=== PATIENT | female | born 1995 | race Caucasian/White ===

== ENCOUNTER 2017-09-11 06:12 | Inpatient (IN) | payer BC, OTHER ==
--- NOTE | 2017-09-11 08:50 | PR ---
[facility] [address] [facility] [place], [place] [address] Signed Progress Notes IP Datetime Report Generated by CPN: 09/11/2017 08:50 PROGRESS NOTES: [id number] Other Impressions: Induction Procedures: Artificial ROM Plan: Continue present management; Anticipate Vaginal Delivery VITAL SIGNS: [id number] Vital Signs: Reviewed; Within Normal Limits EXAM: [id number] Dilatation: 4.0 Effacement: 50 Station: -3 Uterine Contractions: occasonal MEMBRANES: [id number] Membrane Status: Ruptured Amniotic Fluid Color: Clear ROM Note: AROM without difficulty Comments: Discussed Induction with AROM. Fetus A: [id number] FHR Baseline: 120 Variability: Moderate 6-25bpm Accelerations: 15X15 Presentation: Vertex Fetus B: [id number] Signing Physician: Lg Najera MD CC: *Electronically Signed* 09/11/17 0850 LG NAJERA MD PATIENT NAME: HAL VILLA PROGRESS NOTE DATE OF : [birth year] PHYSICIAN: LG NAJERA MD RPT #: [id number] REPORT IS CONFIDENTIAL AND NOT TO BE RELEASED WITHOUT AUTHORIZATION
--- NOTE | 2017-09-11 12:51 | PR ---
[facility] [address] [facility] [place], [place] [address] Signed Progress Notes IP Datetime Report Generated by CPN: 09/11/2017 12:51 PROGRESS NOTES: [id number] Impression: Normal progression of labor Other Impressions: Induction Procedures: Artificial ROM Plan: Continue present management; Anticipate Vaginal Delivery Informed Consent Obtain: Vaginal Delivery VITAL SIGNS: [id number] Vital Signs: Reviewed; Within Normal Limits EXAM: [id number] Dilatation: 5.0 Effacement: 75 Station: -2 Uterine Contractions: every 2-3 minutes MEMBRANES: [id number] Membrane Status: Ruptured Amniotic Fluid Color: Clear ROM Note: AROM without difficulty Comments: Getting uncomfortable, would like Epidural Fetus A: [id number] FHR Baseline: 120 Variability: Moderate 6-25bpm Accelerations: 15X15 Decelerations: None Presentation: Vertex Fetus B: [id number] Signing Physician: Eulalio Najera MD CC: *Electronically Signed* 09/11/17 1251 EULALIO NAJERA MD PATIENT NAME: ALLENHALASHLEY JOHNSON PROGRESS NOTE DATE OF : [birth year] PHYSICIAN: EULALIO NAJERA MD RPT #: [id number] REPORT IS CONFIDENTIAL AND NOT TO BE RELEASED WITHOUT AUTHORIZATION
--- NOTE | 2017-09-11 15:34 | PR ---
[facility] [address] [place], [place] [address] Signed Progress Notes IP Datetime Report Generated by CPN: 09/11/2017 15:33 PROGRESS NOTES: [id number] Impression: Slow Progression of Labor Other Impressions: Induction Procedures: Intrauterine Pressure Catheter; Scalp Electrode Plan: Continue present management; Anticipate Vaginal Delivery Informed Consent Obtain: Vaginal Delivery VITAL SIGNS: [id number] Vital Signs: Reviewed; Within Normal Limits EXAM: [id number] Dilatation: 6.0 Effacement: 80 Station: -2 Uterine Contractions: every 2-3 minutes MEMBRANES: [id number] Membrane Status: Ruptured Amniotic Fluid Color: Clear ROM Note: AROM without difficulty Comments: Comfortable with Epidural. Making progress, but seems slow. Internals appleid. Continue observation; may need Pitocin Augmentation Fetus A: [id number] FHR Baseline: 120 Variability: Moderate 6-25bpm Accelerations: 15X15 Decelerations: None Presentation: Vertex Fetus B: [id number] Signing Physician: Lg Najera MD CC: *Electronically Signed* 09/11/17 1533 LG NAJERA MD PATIENT NAME: HAL VILLA PROGRESS NOTE DATE OF : [birth year] PHYSICIAN: LG NAJERA MD RPT #: [id number] REPORT IS CONFIDENTIAL AND NOT TO BE RELEASED WITHOUT AUTHORIZATION
--- NOTE | 2017-09-12 13:03 | PR ---
[facility] [address] [facility] [place] [address] Signed PP Progress Notes Datetime Report Generated by CPN: 09/12/2017 13:03 SUBJECTIVE: [id number] Pain: Within normal limits Nausea/Vomiting: Denies Vital Signs: [id number] Vital Signs: Reviewed; Within Normal Limits Notable Details: T = 101.1 @ 0112 this am EXAM: [id number] Abdomen/Uterus: Normal Lochia: Normal Extremities: Normal IMPRESSION/PLAN/PROCEDURES: [id number] Impression: Endometritis Other Impression: PP Anemia Plan: Continue present management Other Plans: Continue antibiotics Procedures: Antibiotics Progress Notes: Doing well, up moving without difficulty. Continue antibiotics until tomorrow am (will stop then if remains afebrile). Signing Physician: Lg Najera MD CC: *Electronically Signed* 09/12/17 1303 LG NAJERA MD PATIENT NAME: HAL VILLA PROGRESS NOTE DATE OF : 94 PHYSICIAN: LG NAJERA MD RPT #: [id number] REPORT IS CONFIDENTIAL AND NOT TO BE RELEASED WITHOUT AUTHORIZATION
--- NOTE | 2017-09-13 12:59 | PR ---
[facility] [address] [facility] [place], [place] [address] Signed PP Progress Notes Datetime Report Generated by CPN: 09/13/2017 12:59 SUBJECTIVE: [id number] Pain: Within normal limits Nausea/Vomiting: Denies Vital Signs: [id number] Vital Signs: Reviewed; Within Normal Limits Notable Details: Hgb/Hct = 7.2/21.2 EXAM: [id number] Abdomen/Uterus: Normal Lochia: Normal Extremities: Normal IMPRESSION/PLAN/PROCEDURES: [id number] Impression: Normal progression Other Impression: Anemia Plan: Continue present management Other Plans: Continue antibiotics Procedures: None Progress Notes: Doing well, without complaint. No dizziness, tolerating anemia well. Antibiotics stopped this am after 24+ hours being afebrile. Plan home tomorrow. Signing Physician: Lg Najera MD CC: *Electronically Signed* 09/13/17 1259 LG NAJERA MD PATIENT NAME: HAL VILLA PROGRESS NOTE DATE OF : 94 PHYSICIAN: LG NAJERA MD RPT #: [id number] REPORT IS CONFIDENTIAL AND NOT TO BE RELEASED WITHOUT AUTHORIZATION
--- NOTE | 2017-09-14 09:52 | PR ---
[facility] [address] [facility] [place], [place] [address] Signed PP Progress Notes Datetime Report Generated by CPN: 09/14/2017 09:52 SUBJECTIVE: [id number] Pain: Within normal limits Nausea/Vomiting: Denies Vital Signs: [id number] Vital Signs: Reviewed; Within Normal Limits Notable Details: Hgb/Hct = 7.2/21.2 EXAM: [id number] Abdomen/Uterus: Normal Lochia: Normal Extremities: Normal IMPRESSION/PLAN/PROCEDURES: [id number] Impression: Normal progression Other Impression: Anemia Plan: Discharge Other Plans: Continue antibiotics Procedures: None Progress Notes: Doing well, without complaint. No furhter fever. Ready to go home. Signing Physician: Lg Najera MD CC: *Electronically Signed* 09/14/17 0952 LG NAJERA MD PATIENT NAME: HAL VILLA PROGRESS NOTE DATE OF : 94 PHYSICIAN: LG NAJERA MD RPT #: [id number] REPORT IS CONFIDENTIAL AND NOT TO BE RELEASED WITHOUT AUTHORIZATION
--- NOTE | 2017-09-14 11:58 | NUR ---
PT RESTING IN BED WITH BABY IN HER ARMS. DAD WAS PACKING THINGS UP-DC TODAY. BOTH SEEMED VERY HAPPY, FEELING WELL. EXTENDED A BLESSING, WILL FOLLOW NEEDED
== END 2017-09-14 11:35 | disposition home or self-care (01) | DRG 774 ==
LOC: FBC 06:45
PROVIDERS: ADMIT General Practice
PROC: 10E0XZZ Delivery of Products of Conception, External Approach (ICD-10-PCS; principal; 2017-09-11)
PROC: 0KQM0ZZ Repair Perineum Muscle, Open Approach (ICD-10-PCS; 2017-09-11)
PROC: 00HU33Z Insertion of Infusion Device into Spinal Canal, Percutaneous Approach (ICD-10-PCS; 2017-09-11)
PROC: 3E0R3BZ Introduction of Anesthetic Agent into Spinal Canal, Percutaneous Approach (ICD-10-PCS; 2017-09-11)
DX: O62.9 Abnormality of forces of labor, unspecified (principal); O72.1 Other immediate postpartum hemorrhage; Z3A.39 39 weeks gestation of pregnancy; Z37.0 Single live birth; O70.1 Second degree perineal laceration during delivery
CPT/HCPCS: 01960; 36415; 81001; 85025; 85027; 87070; 87075; 87076; 87077; 87185; 87205; J0290; J1580; J2210; J2405; J2550; J2590; J2795; J3010; J7120